=== PATIENT | male | born 1975 | race Caucasian/White ===

== ENCOUNTER → 2025-07-27 | Outpatient (CLI) | payer MEDICARE, SELFPAY ==
--- NOTE | 2025-07-27 11:50 | RAD_ITS ---
PROCEDURE: LUMBAR SPINE 2 OR 3 VIEWS 07/27/2025 REASON FOR EXAM: OTHER SPONDYLOSIS, LUMBAR REGION TECHNIQUE: Procedure Code: RADSPLL Modality: DX Procedure: LUMBAR SPINE 2 OR 3 VIEWS COMPARISON: None. FINDINGS: BONES: Five qon-oeb-niqhyrb lumbar vertebral bodies. No fracture or focal osseous lesion. Anatomic spinal alignment. DISC/DEGENERATIVE CHANGES: Disc spaces are preserved. SOFT TISSUES: Right abdominal surgical clips and left abdominal suture material. Device projected over the left lower abdomen. RAD/Lumbar Spine 2 or 3 Views IMPRESSION: No acute lumbar spine abnormality. Reading Location: [id number]
== END | disposition home or self-care (01) ==
PROVIDERS: PCP Family Medicine; Referring Provider Anesthesiology Pain Medicine; Visit Provider Anesthesiology Pain Medicine
DX: M47.896 Other spondylosis, lumbar region (principal)
CPT/HCPCS: 72100